=== PATIENT | female | born 1950 | race Caucasian/White ===

== ENCOUNTER 2020-05-02 06:07 | Day surgery (SDC) | payer MEDICARE, OTHER ==
[2020-05-01 11:12] LABS: RED CELL DISTRIBUTION WIDTH 13.1 % (11.5-14.5)
[2020-05-01 11:14] LABS: BASOPHILS % (AUTO) 0.4 % (0-1); EOSINOPHILS # (AUTO) 0.1 X10'3 (0-0.9); HEMATOCRIT 39.7 % (35.0-45.0); LYMPHOCYTES # (AUTO) 1.2 X10'3 (1.1-4.8); LYMPHOCYTES % (AUTO) 21.9 % (21-51); MEAN CORPUSCULAR HEMOGLOBIN 29.4 PG (27.0-31.0); MEAN CORPUSCULAR HGB CONC 32.8 g/dL (33.0-36.5); MEAN CORPUSCULAR VOLUME 89.6 FL (78-98); MEAN PLATELET VOLUME 7.8 FL (7.4-10.4); MONOCYTES # (AUTO) 0.5 X10'3 (0-0.9); MONOCYTES % (AUTO) 9.8 % (2-12); NEUTROPHILS # (AUTO) 3.5 X10'3 (1.8-7.7); NEUTROPHILS % (AUTO) 65.9 % (42-75); PLATELET COUNT 209 X10'3 (140-440); RED BLOOD COUNT 4.44 X10'6 (4.20-5.60); WHITE BLOOD COUNT 5.4 X10'3 (4.5-11.0)
[2020-05-01 11:22] LABS: ALBUMIN 3.5 G/DL (3.4-5.0); ANION GAP 7 (8-16); BLOOD UREA NITROGEN 17 MG/DL (7-18); BUN/CREATININE RATIO 21.5 (6.6-38.0); CALCIUM 9.1 MG/DL (8.5-10.1); CHLORIDE 104 MMOL/L (99-107); CREATININE 0.79 MG/DL (0.40-0.90); GLUCOSE 83 MG/DL (70-104); POTASSIUM 3.7 MMOL/L (3.5-5.1); SODIUM 143 MMOL/L (135-145); TOTAL CARBON DIOXIDE 31.8 MMOL/L (24-32); eGFR 72 ML/MIN
[2020-05-01 11:23] LABS: PARTIAL THROMBOPLASTIN TIME 28 SECONDS (22-32)
[2020-05-02] VITALS (10 sets, daily range): BP systolic 111–134; BP diastolic 41–70
[~2020-05-02] VITALS: Ht 177.8 cm; Wt 55.0 kg
[2020-05-02] MEDS ORDERED: diphenhydrAMINE 25mg capsule PO PRN (06:25)
[2020-05-02] MEDS ORDERED: normal saline 1,000 ML IV SCH (06:25)
[2020-05-02] MEDS ORDERED: LORazepam 0.5 MG tablet PO PRN (06:25)
[2020-05-02] MEDS ORDERED: LIDOcaine/PRILOcaine 5gm cream TP ONE (06:25)
[2020-05-02] MEDS ORDERED: ROSU10TA28 PO (06:29)
[2020-05-02] MEDS ORDERED: TERB250T4 PO (06:29)
[2020-05-02] MEDS ORDERED: LACT1CAP65 PO (06:29)
[2020-05-02] MEDS ORDERED: SACU1TAB PO (06:29)
[2020-05-02] MEDS ORDERED: RED600CA2 PO (06:29)
[2020-05-02] MEDS ORDERED: verapamil 2.5 mg/ml inj IV ONE (07:46)
[2020-05-02] MEDS ORDERED: heparin 1,000unit/ml 10ml vial 10 ML ONE (07:46)
[2020-05-02] MEDS ORDERED: LIDOcaine 1% (10mg/ml)w/preservative injection 20ml MDV ONE (07:46)
[2020-05-02] MEDS ORDERED: fentaNYL/PF 50MCG/1 ML 2ML syringe ONE (07:46)
[2020-05-02] MEDS ORDERED: midazolam 1 mg/ML 2ml injection ONE (07:46)
[2020-05-02] MEDS ORDERED: nitroGLYCERIN-Tridil 50MG/D5W 250 ML IV ONE (07:46)
[2020-05-02] MEDS ORDERED: iohexol 350MG/ML 100ml bottle IV ONE (07:47)
[2020-05-02] MEDS ORDERED: iohexol 350 MG/ML 50ML vial IV ONE (07:47)
[2020-05-02] MEDS ORDERED: normal saline 1,000 ML IV ONE (09:45)
[2020-05-02] MEDS ORDERED: HYDROcodone/acetaminophen 10/325mg tab PO PRN (10:00)
[2020-05-02] MEDS ORDERED: HYDROcodone/acetaminophen 5mg/325mg tablet PO PRN (10:00)
[2020-05-03 08:39] LABS: ISTAT Hct MIX 35 %PCV (35-48); ISTAT O2 SATURATION MIX VENOUS 67 % (60-80); ISTAT SOURCE BLNK
[2020-05-03 08:39] LABS: ISTAT Hct MIX 36 %PCV (35-48); ISTAT O2 SATURATION MIX VENOUS 93 % (60-80); ISTAT SOURCE BLNK
== END 2020-05-02 14:00 | disposition home or self-care (01) ==
LOC: SSTAY O 06:07
PROVIDERS: ATTEND Internal Medicine Cardiovascular Disease
DX: I25.10 Atherosclerotic heart disease of native coronary artery without angina pectoris (principal); I42.0 Dilated cardiomyopathy; G43.909 Migraine, unspecified, not intractable, without status migrainosus; E78.49 Other hyperlipidemia; Z98.890 Other specified postprocedural states; Z79.899 Other long term (current) drug therapy; Z79.01 Long term (current) use of anticoagulants; Z82.49 Family history of ischemic heart disease and other diseases of the circulatory system
CPT/HCPCS: 36415; 76937; 80048; 82803; 85014; 85025; 85610; 85730; 93460; 99152; 99153; C1894; J1644; J2001; J2250; J3010; J7030; Q0163; Q9967; A4620; A4663; A5120; A6258; C1751; J3490